=== PATIENT | female | born 1965 | race Caucasian/White ===

== ENCOUNTER 2017-05-31 02:07 | Emergency (ER) | payer OTHER ==
[~2017-05-31] VITALS: Ht 162.6 cm; Wt 61.4 kg
[~2017-05-31 02:07] MED LIST: ALPRAZOLAM PO; BENTYL10 MG PO; CIPRO PO; DAKIN'S MODIF1000 ML EXT; DESYREL50 MG PO; DILAUDID2 MG PO; LAMICTAL PO; NEURONTIN PO; NEURONTIN300 MG PO; NEURONTIN800 MG PO; ORUDIS75 M1 PO; PATIENT'S PHARMACY; PERCOCET PO; PHENERGAN25 M1 PO; SEROQUEL PO; VICODIN 5/500 T1 TAB PO; VISTARIL50 MG PO; XANAX1 MG PO
== END 2017-05-31 02:15 | disposition home or self-care (01) ==
LOC: CED 02:07
DX: Z53.21 Procedure and treatment not carried out due to patient leaving prior to being seen by health care provider (principal)